=== PATIENT | male | born 1990 | race Hispanic/Latino ===

== ENCOUNTER 2021-02-06 22:24 | Emergency (ER) | payer SELFPAY ==
[2021-02-06] MEDS ORDERED: IBUPROFEN 400 MG TAB ONE (23:47)
--- NOTE | 2021-02-07 00:37 | EDPHYS ---
Physician Documentation [facility] Name: Hector Morrison Age: 30 yrs Sex: Male : 1990 Arrival Date: 02/06/2021 Time: 22:27 Bed 16 Private MD: ED Physician Adams Owen HPI: 02/07 00:21 This 30 yrs old Male presents to ER via Ambulatory with complaints of Headache.ma2 00:29 The patient complains of pain to the forehead. The patient describes the headache as a ma2 pressure. Onset: The symptoms/episode began/occurred gradually, 2 day(s) ago. Associated signs and symptoms: Pertinent negatives: dizziness, nausea, paresthesias, rash, vomiting, weakness. Severity of symptoms: At its worst the pain was mild, in the emergency department the pain is unchanged. Headache History: The patient has had previous headaches and this one is similar to previous episodes. The patient has not experienced similar symptoms in the past. Historical: - Allergies: 02/06 22:31 No Known Allergies; ss - Home Meds: 22:31 None [Active]; ss - PMHx: :31 None; ss - PSHx: 22:31 None; ss - Immunization history:: Adult Immunizations up to date, Client reports receiving the 1st dose of the Covid vaccine. - Social history:: Smoking status: Patient denies any tobacco usage or history of. - Family history:: not pertinent. ROS: 02/07 00:29 Constitutional: Negative for fever, chills, and weight loss. ma2 All other systems are negative. Exam: 00:29 Constitutional: This is a well developed, well nourished patient who is awake, alert, ma2 and in no acute distress. Head/Face: Normocephalic, atraumatic. Eyes: Pupils equal round and reactive to light, extra-ocular motions intact. Lids and lashes normal. Conjunctiva and sclera are non-icteric and not injected. Cornea within normal limits. Periorbital areas with no swelling, redness, or edema. ENT: red oropharynx, otherwise Nares patent. No nasal discharge, no septal abnormalities noted. Tympanic membranes are normal and external auditory canals are clear. Oropharynx with no redness, swelling, or masses, exudates, or evidence of obstruction, uvula midline. Mucous membranes moist. Neck: Trachea midline, no thyromegaly or masses palpated, and no cervical lymphadenopathy. Supple, full range of motion without nuchal rigidity, or vertebral point tenderness. No Meningismus. Chest/axilla: Normal chest wall appearance and motion. Nontender with no deformity. No lesions are appreciated. Cardiovascular: Regular rate and rhythm with a normal S1 and S2. No gallops, murmurs, or rubs. Normal PMI, no JVD. No pulse deficits. Respiratory: Lungs have equal breath sounds bilaterally, clear to auscultation and percussion. No rales, rhonchi or wheezes noted. No increased work of breathing, no retractions or nasal flaring. Abdomen/GI: Soft, non-tender, with normal bowel sounds. No distension or tympany. No guarding or rebound. No evidence of tenderness throughout. Back: No spinal tenderness. No costovertebral tenderness. Full range of motion. MS/ Extremity: Pulses equal, no cyanosis. Neurovascular intact. Full, normal range of motion. Neuro: Awake and alert, GCS 15, oriented to person, place, time, and situation. Cranial nerves II-XII grossly intact. Motor strength 5/5 in all extremities. Sensory grossly intact. Cerebellar exam normal. Normal gait. Vital Signs: 02/06 22:32 BP 153 / 93; Pulse 120; Resp 15; Temp 100.7(O); Pulse Ox 99% on R/A; Weight 77.11 kg; ss Height 5 ft. 10 in. (177.80 cm); Pain 8/10; 22:32 Body Mass Index 24.39 (77.11 kg, 177.80 cm) Henning Coma Score: 02/07 00:36 Eye Response: spontaneous(4). Verbal Response: oriented(5). Motor Response: obeys ma2 commands(6). Total: 15. MDM: 02/06 22:35 Patient medically screened. ma2 02/07 00:29 Differential diagnosis: migraine, sinusitis, tension headache, uremia. ma2 00:36 Data reviewed: vital signs, nurses notes, old medical records, lab test result(s), ma2 radiologic studies. Counseling: I had a detailed discussion with the patient and/or guardian regarding: the historical points, exam findings, and any diagnostic results supporting the discharge/admit diagnosis, the presence of at least one elevated blood pressure reading (>120/80) during this emergency department visit, the need for outpatient follow up. Response to treatment: the patient's symptoms have markedly improved after treatment. 02/06 22:36 Order name: Flu; Complete Time: 00:27 [facility] 02/06 22:36 Order name: Strep; Complete Time: 00:27 [facility] 02/06 23:50 Order name: Throat Culture [facility] 02/07 00:12 Order name: SARS-COV-2 RT PCR; Complete Time: 00:27 [facility] 02/06 22:36 Order name: Droplet/Contact Precautions; Complete Time: 22:40 [facility] 02/06 22:36 Order name: Labs collected and sent; Complete Time: 22:40 [facility] 02/06 22:36 Order name: O2 Per Protocol; Complete Time: 22:40 [facility] Administered Medications: 02/06 23:25 Drug: Ibuprofen 400 mg Route: PO; ms4 Disposition Summary: 02/07/21 00:36 Discharge Ordered Location: Home ma2 Condition: Stable ma2 Diagnosis - Acute upper respiratory infection, unspecified ma2 Followup: ma2 - With: Private Physician - When: Tomorrow - Reason: Continuance of care Discharge Instructions: - Discharge Summary Sheet ma2 - Upper Respiratory Infection, Adult il2 Forms: - Medication Reconciliation Form ma2 - Thank You Letter ma2 - Antibiotic Education ma2 - Prescription Opioid Use ma2 Prescriptions: - Diclofenac Sodium 75 mg Oral Tablet Sustained Release - take 1 tablet by ORAL route 2 times per day; 30 tablet; Refills: 0, Product ma2 Selection Permitted - Zithromax Z-En 250 mg Oral Tablet - take 1 tablet by ORAL route as directed for 5 days Day 1 - take two (2) tablets ma2 one time. Day 2, 3, 4 , 5 take one (1) tablet once daily.; 6 tablet; Refills: 0, Product Selection Permitted - Medrol (En) 4 mg Oral Tablets, Dose Pack - take 1 tablet by ORAL route as directed - follow package instructions; 1 ma2 packet; Refills: 0, Product Selection Permitted Signatures: Dispatcher [employer] Teresa Valdes RN RN ss Adams Owen MD MD ma2 Aditi Klein RN RN ms4 Corrections: (The following items were deleted from the chart) 22:56 22:37 CORONAVIRUS+.BRZ ordered. EDMS EDMS
--- NOTE | 2021-02-07 00:37 | ER ---
Nurse's Notes [facility] Name: Hector Morrison Age: 30 yrs Sex: Male : 1990 Arrival Date: 02/06/2021 Time: 22:27 Bed 16 Private MD: Diagnosis: Acute upper respiratory infection, unspecified Presentation: 02/06 22:31 Chief complaint: Patient states: Headache that began 3 days ago. Pt reports that when ss he takes Tylenol, his pain will subside for 1 hour, but seems to always come back. Coronavirus screen: Client denies travel out of the [place] in the last 14 days. Ebola Screen: Patient denies exposure to infectious person. Patient denies travel to an Ebola-affected area in the 21 days before illness onset. Initial Sepsis Screen: Does the patient meet any 2 criteria? No. Patient's initial sepsis screen is negative. Does the patient have a suspected source of infection? No. Patient's initial sepsis screen is negative. Risk Assessment: Do you want to hurt yourself or someone else? Patient reports no desire to harm self or others. Onset of symptoms was February 03, 2021. 22:31 Method Of Arrival: Ambulatory ss 22:31 Acuity: DANICA 4 ss Triage Assessment: 02/07 01:22 Headache History: Denies prior headaches. General: Appears in no apparent distress. ms4 Behavior is calm, cooperative. Pain: Denies pain. 01:23 Pain: Also complains of no other associated symptoms. ms4 01:23 Pain: Pain. ms4 Historical: - Allergies: 02/06 22:31 No Known Allergies; ss - Home Meds: 22:31 None [Active]; ss - PMHx: 22:31 None; ss - PSHx: 22:31 None; ss - Immunization history:: Adult Immunizations up to date, Client reports receiving the 1st dose of the Covid vaccine. - Social history:: Smoking status: Patient denies any tobacco usage or history of. - Family history:: not pertinent. Screenin:47 Abuse screen: Denies threats or abuse. Denies injuries from another. Nutritional ms4 screening: No deficits noted. Tuberculosis screening: No symptoms or risk factors identified. Fall Risk None identified. Assessment: 22:47 Pain: Denies pain. Neuro: No deficits noted. Cardiovascular: No deficits noted. ms4 Respiratory: No deficits noted. Vital Signs: 22:32 BP 153 / 93; Pulse 120; Resp 15; Temp 100.7(O); Pulse Ox 99% on R/A; Weight 77.11 kg; Height 5 ft. 10 in. (177.80 cm); Pain 8/10; 22:32 Body Mass Index 24.39 (77.11 kg, 177.80 cm) ss Maral Coma Score: 02/07 00:36 Eye Response: spontaneous(4). Verbal Response: oriented(5). Motor Response: obeys ma2 commands(6). Total: 15. ED Course: 02/06 22:27 Patient arrived in ED. mr 22:31 Triage completed. 22:31 Arm band placed on right wrist. 22:35 Adams Owen MD is Attending Physician. ma2 22:48 No provider procedures requiring assistance completed. ms4 23:13 Strep Sent. ms4 23:13 Flu Sent. ms4 02/07 01:23 Patient has correct armband on for positive identification. ms4 01:23 IV discontinued, intact, bleeding controlled. ms4 Administered Medications: 02/06 23:25 Drug: Ibuprofen 400 mg Route: PO; ms4 Outcome: 02/07 00:36 Discharge ordered by . ma2 01:23 Discharged to home ambulatory. ms4 01:23 Condition: stable 01:23 Discharge instructions given to patient, Instructed on discharge instructions, follow up and referral plans. Demonstrated understanding of instructions, follow-up care, medications, Prescriptions given X 3. 01:23 Patient left the ED. ms4 Signatures: Adri Washington Shelby, RN RN Adams Owen MD MD [facility] Aditi Klein RN RN ms4
[2021-02-07 01:32] VITALS: BP 153/93; TEMP 100.7; O2SAT 99
== END 2021-02-07 01:23 | disposition home or self-care (01) ==
LOC: ER 22:24
DX: J06.9 Acute upper respiratory infection, unspecified (principal); Z20.822 Contact with and (suspected) exposure to COVID-19
CPT/HCPCS: 87070; 87081; 87804; 99283; U0003